=== PATIENT | female | born 1985 | race Caucasian/White ===

== ENCOUNTER 2016-11-07 23:27 | Emergency (ER) | payer SELFPAY ==
[~2016-11-07] VITALS: Ht 160 cm; Wt 68.2 kg
[2016-11-08] MEDS ORDERED: IBUPROFEN 400MG TABLET PO ONE (01:15)
[2016-11-08] MEDS ORDERED: HYDROCODONE/ACETAMINOPHEN 5/325MG TABLET PO ONE (01:45)
[2016-11-08 03:40] VITALS: BP 124/78
== END 2016-11-08 05:25 | disposition home or self-care (01) ==
LOC: ER 23:27
DX: S00.83XA Contusion of other part of head, initial encounter (principal); S61.411A Laceration without foreign body of right hand, initial encounter; Y08.89XA Assault by other specified means, initial encounter; Y93.89 Activity, other specified; Y92.89 Other specified places as the place of occurrence of the external cause
CPT/HCPCS: 70486; 73130; 81025; 99284